=== PATIENT | female | born 1955 ===

== ENCOUNTER 2018-08-28 09:23 | Emergency (ER) | payer OTHER ==
[~2018-08-28] VITALS: Ht 162.6 cm; Wt 72.1 kg
[~2018-08-28 09:23] MED LIST: ADVAIR 2501 DISK W/1 IH; ALBUTEROL17 G1 IH; DOLOGESIC CAPLE1 TAB PO; PEPCID40 MG PO; SINGULAIR 10MG10 MG PO
== END 2018-08-28 16:00 | disposition home or self-care (01) ==
LOC: ER 09:23
DX: S80.02XA Contusion of left knee, initial encounter (principal); W01.198A Fall on same level from slipping, tripping and stumbling with subsequent striking against other object, initial encounter; Y93.89 Activity, other specified; Y92.59 Other trade areas as the place of occurrence of the external cause; Y99.8 Other external cause status

== ENCOUNTER 2018-12-18 17:28 | Emergency (ER) | payer OTHER ==
[~2018-12-18] VITALS: Ht 162.6 cm; Wt 74.8 kg
== END 2018-12-18 18:35 | disposition home or self-care (01) ==
LOC: ER 17:28
DX: S50.02XA Contusion of left elbow, initial encounter (principal); W18.39XA Other fall on same level, initial encounter; Y93.89 Activity, other specified; Y92.89 Other specified places as the place of occurrence of the external cause; Y99.8 Other external cause status